=== PATIENT | female | born 1970 | race Caucasian/White ===

== ENCOUNTER 2023-06-13 06:32 | Day surgery (SDC) | payer BC, MEDICARE ==
[2023-06-13] VITALS (8 sets, daily range): BP systolic 124–147; BP diastolic 59–79; PULSE 72–79; RESP 12–17; TEMP 98.1; O2SAT 93–97
[~2023-06-13] VITALS: Ht 165.1 cm; Wt 141.8 kg
[~2023-06-13 06:32] MED LIST: ASPI81TA52 PO; FEXO-271 PO; FOLI0.8T7 PO; FURO80TA87 PO; HYDR100T27 PO; INSU100I31 SQ; LABE300T4 PO; LISI40TA13 PO; PHO667C PO; PRAV10TA39 PO
[2023-06-13] MEDS ORDERED: normal saline 1000ml 1,000 ML IV PRN (06:55)
[2023-06-13] MEDS ORDERED: METO-411 PO (07:19)
[2023-06-13] MEDS ORDERED: DOXY-457 PO (07:19)
[2023-06-13] MEDS ORDERED: VIT1TABL50 PO (07:19)
[2023-06-13] MEDS ORDERED: fentaNYL/PF 50MCG/1 ML 2ML syringe ONE ×2 (07:43→09:09)
[2023-06-13] MEDS ORDERED: LIDOcaine 1% 30ml preserv. free vial ONE (07:43)
[2023-06-13] MEDS ORDERED: iohexol 300mg/ml 100ml inj. ONE (07:43)
[2023-06-13] MEDS ORDERED: midazolam 1 mg/ML 2ml injection ONE (07:43)
[2023-06-13 07:44] LABS: BASOPHILS # (AUTO) 0.1 X10'3 (0-0.2); BASOPHILS % (AUTO) 0.4 % (0-1); EOSINOPHILS # (AUTO) 0.7 X10'3 (0-0.9); EOSINOPHILS % (AUTO) 5.2 % (0-6); HEMATOCRIT 36.7 % (35.0-45.0); HEMOGLOBIN 12.3 g/dl (12.0-16.0); LYMPHOCYTES # (AUTO) 2.4 X10'3 (1.1-4.8); LYMPHOCYTES % (AUTO) 16.6 % (21-51); MEAN CORPUSCULAR HEMOGLOBIN 31.9 PG (27.0-31.0); MEAN CORPUSCULAR HGB CONC 33.5 g/dL (33.0-36.5); MEAN CORPUSCULAR VOLUME 95.4 FL (78-98); MEAN PLATELET VOLUME 8.5 FL (7.4-10.4); MONOCYTES # (AUTO) 0.5 X10'3 (0-0.9); MONOCYTES % (AUTO) 3.3 % (2-12); NEUTROPHILS # (AUTO) 10.6 X10'3 (1.8-7.7); NEUTROPHILS % (AUTO) 74.5 % (42-75); PLATELET COUNT 323 X10'3 (140-440); RED BLOOD COUNT 3.85 X10'6 (4.20-5.60); RED CELL DISTRIBUTION WIDTH 13.8 % (11.5-14.5); WHITE BLOOD COUNT 14.2 X10'3 (4.5-11.0)
[2023-06-13] MEDS ORDERED: heparin 1,000 UNITS/NS 500ml 500 ML ONE (07:44)
[2023-06-13 07:45] LABS: ALBUMIN 3.3 G/DL (3.4-5.0); ANION GAP 15 (8-16); BLOOD UREA NITROGEN 51 MG/DL (7-18); BUN/CREATININE RATIO 6.2 (10.0-20.0); CALCIUM 9.2 MG/DL (8.5-10.1); CHLORIDE 91 MMOL/L (99-107); CREATININE 8.29 MG/DL (0.40-0.90); GLUCOSE 145 MG/DL (70-104); POTASSIUM 4.8 MMOL/L (3.5-5.1); SODIUM 134 MMOL/L (135-145); TOTAL CARBON DIOXIDE 27.8 MMOL/L (24-32); eCRCL 7 ML/MIN; eGFR 5 ML/MIN
[2023-06-13 07:47] LABS: PROTHROMBIN TIME 10.3 SECONDS (9.0-12.0)
[2023-06-13] MEDS ORDERED: heparin 1,000unit/ml 10ml vial 10 ML ONE (08:45)
== END 2023-06-13 10:45 | disposition home or self-care (01) ==
LOC: SSTAY O 06:32
PROVIDERS: ATTEND Radiology Diagnostic Radiology
DX: T82.868A Thrombosis due to vascular prosthetic devices, implants and grafts, initial encounter (principal); E11.22 Type 2 diabetes mellitus with diabetic chronic kidney disease; N18.6 End stage renal disease; Z79.2 Long term (current) use of antibiotics; Z79.899 Other long term (current) drug therapy; Z88.1 Allergy status to other antibiotic agents; Z88.2 Allergy status to sulfonamides; Z88.5 Allergy status to narcotic agent; Z88.8 Allergy status to other drugs, medicaments and biological substances; Y73.2 Prosthetic and other implants, materials and accessory gastroenterology and urology devices associated with adverse incidents
CPT/HCPCS: 36415; 36902; 80048; 85025; 85610; 99152; 99153; C1725; C1769; J1644; J2250; J3010; J3490; J7030; Q9967; A4620; C1894; C2623